=== PATIENT | male | born 1990 | race Caucasian/White ===

== ENCOUNTER 2017-01-08 12:42 | Emergency (ER) | payer OTHER ==
[~2017-01-08 12:42] MED LIST: DOCU50CA9 PO; MELO7.5T29 PO
--- NOTE | 2017-01-08 13:05 | PHYS DOC ---
Text Text Patient should be referred to GI for an EGD - consider that he has some stricture and may require dilation General Stated Complaint: NA Time Seen by MD: 12:55 Source: family (father presents with patient and provides history) Exam Limitations: other (mental impairment of patient. ) Problems: History of Present Illness Initial Comments Patient arrives in wheelchair with father accompanying him. Concern per father is that patient recently moved to a new senior care and there is concern that he may have been given whole food instead of pureed food. He has not wanted to eat any foods for the last 3-4 days. He has a history of esophageal reflux as an and had esophageal stricture done at age 2. He has had another episode a few years ago that was similar to this one and that he had been given whole food and he had the issue resolved with IM glucagon. 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 There has been no reported associated diarrhea. No evidence of shortness of breath or difficulty breathing. Tolerating his secretions as well as liquids without difficulty. No other specific concerns brought up by father. Timing/Duration: unsure (patient has refused to eat for close to 4 days. Has been taking in po liquids without difficulty. ) Allergies: Coded Allergies: vancomycin (Verified Allergy, Intermediate, Hives, 09/21/16) REDNESS ALL OVER BODY latex (Verified Allergy, Unknown, 05/22/16) Past Medical History Medical History: other Surgical History: noncontributory Psychosocial History: other (Mental retardation) Family History Significant Family History: no pertinent family hx Social History Smoker: non-smoker Alcohol: none Drugs: none Review of Systems Constitutional: no symptoms reported All Other Systems: Reviewed and Negative (all history per father. ROS unobtainable from patient due to mental status) Physical Exam General Appearance: WD/WN, no apparent distress Eyes: bilateral eye normal inspection, bilateral eye PERRL Neck: normal inspection Respiratory: normal breath sounds Cardiovascular: regular rate, rhythm Gastrointestinal: non tender, soft Rectal: deferred Back: normal inspection Neurologic/Psychiatric: alert Skin: normal color, warm/dry Lymphatic: no adenopathy Orders, Labs, Meds Mother arrives and helps patient with crackers. He was able to tolerate po crackers and soda without difficulty and had no drooling. At this time we will discharge home and can return for recurrent or persistent problems. Continue pureed diet. Patient very sleep following IV reglan. No new symptoms. RYLEE DALY MD Jan 08, 2017 13:04
[2017-01-08] MEDS ORDERED: METOCLOPRAMIDE HCL 10 MG/2 ML VIAL. IV ONE (13:15)
[2017-01-08] MEDS ORDERED: GLUCAGON,HUMAN RECOMBINANT 1 MG KIT. IV ONE (13:15)
--- NOTE | 2017-01-08 13:32 | RAD ---
AP chest, 01/08/2017: History: Chest pain The heart size and pulmonary vascularity are normal. No pulmonary infiltrates are seen. There is no evidence of pleural fluid. IMPRESSION: No acute cardiopulmonary abnormality is detected.
[2017-01-08 15:05] VITALS: BP 113/62
== END 2017-01-08 15:10 | disposition home or self-care (01) ==
LOC: ER 12:42
DX: K22.2 Esophageal obstruction (principal); Z88.1 Allergy status to other antibiotic agents; Z91.040 Latex allergy status
CPT/HCPCS: 71010; 96374; 96375; 99284; J1610; J2765